=== PATIENT | male | born 1965 | race Two or more races ===

== ENCOUNTER 2024-12-21 22:44 | Inpatient (IN) | payer OTHER ==
[~2024-12-21] VITALS: Ht 167.6 cm; Wt 90.1 kg
[2024-12-21] MEDS: SODIUM CHLORIDE 0.9% 1,000 ML IV ONE (23:00)
[2024-12-21 23:04] LABS: Basophils # (auto) 0.1 10 ^3/uL (0-0.2); Eosinophils # (auto) 0.1 10 ^3/uL (0-0.8); Eosinophils % (auto) 0.5 % (0.0-7.0); Hematocrit 42.2 % (41.0-53.0); Hemoglobin 14.7 g/dL (13.5-17.5); Lymphocytes # (auto) 3.9 10 ^3/uL (0.4-5.4); Lymphocytes % (auto) 31.4 % (10.0-50.0); Mean Corpuscular Hemoglobin 30.6 pg (28.0-32.0); Mean Corpuscular Hgb Conc. 34.7 g/dL (32.0-36.0); Mean Corpuscular Volume 88.2 fL (80.0-100.0); Monocytes # (auto) 0.9 10 ^3/uL (0-1.3); Monocytes % (auto) 7.4 % (0.0-12.0); Neutrophils # (auto) 7.5 10 ^3/uL (1.6-8.6); Neutrophils % (auto) 59.7 % (37.0-80.0); Nucleated Red Blood Cells % 0.1 %; Platelet Count (auto) 279 10^3/uL (140-450); Red Blood Cells 4.79 10^6/uL (4.5-5.90); Red Cell Distribution Width 13.3 % (11.8-14.3); White Blood Cell 12.5 10^3/uL (4.4-10.8)
[2024-12-21 23:21] LABS: Alkaline Phosphatase 93 U/L (46-116); Anion Gap 13 (5-15); Aspartate Aminotransferase 37 U/L (13-40); BUN/Creatinine Ratio 21.8 (10.0-20.0); Bilirubin, Total 0.8 mg/dL (0.2-1.0); Carbon Dioxide 24 mmol/L (20-31); Chloride 103 mmol/L (98-107); Sodium 140 mmol/L (136-145); Total Protein 7.8 g/dL (5.7-8.2)
[2024-12-21 23:25] LABS: Alanine Aminotransferase 57 U/L (7-40); Albumin 5.2 g/dL (3.2-4.8); Blood Urea Nitrogen 34 mg/dL (9-23); Calcium 11.3 mg/dL (8.7-10.4); Glucose 136 mg/dL (74-106)
[2024-12-21 23:45] VITALS: PULSE 93; RESP 17; O2SAT 98
[2024-12-22] MEDS: MORPHINE SULFATE 4 MG/ML SYR/VIAL IV ONE (00:28)
[2024-12-22 00:37] LABS: Urine Bacteria FEW /hpf (None Seen); Urine Blood Negative /uL (Negative); Urine Clarity Clear (Clear); Urine Color Yellow (Yellow); Urine Mucus FEW (None Seen); Urine Protein, UAD Negative (Negative); Urine Specific Gravity 1.031 (1.001-1.035); Urine Sperm PRESENT /hpf (None Seen); Urine Squamous Epithelial Cell None Seen /hpf (<5); Urine Urobilinogen Normal (Negative); Urine WBC 1 /HPF (0-3); Urine pH 5.5 (5.0-9.0)
[2024-12-22] MEDS: ENOXAPARIN SOD 100 MG/1 ML SYRINGE SC ONE (00:39)
--- NOTE | 2024-12-22 00:40 | ED.PDOC ---
HPI Comments Patient complaining of chest pain and all over body aches which started today after work. 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 States when he got home he started having chest pains along with body aches and muscle cramping. Patient states he would have prior small heart attack one year ago. States no stents placed. Patient reports pain does feel similar to last year. Chief Complaint: Chest Pain Time Seen by MD: 22:51 Reviewed Notes: Nurses Notes Allergies: Coded Allergies: NO KNOWN ALLERGIES (Unverified , 12/21/24) Information Source: Patient Mode of Arrival: Ambulatory Severity: Moderate Past Medical History PAST MEDICAL HISTORY: IN Constitutional: denies: chills, diaphoresis, fatigue, fever, malaise, sweats, weakness, others EENTM: denies: blurred vision, double vision, ear bleeding, ear discharge, ear drainage, ear pain, ear ringing, eye pain, eye redness, hearing loss, mouth pain, mouth swelling, nasal discharge, nose bleeding, nose congestion, nose pain, photophobia, tearing, throat pain, throat swelling, voice changes, others Respiratory: denies: cough, hemoptysis, orthopnea, SOB at rest, shortness of breath, SOB with excertion, stridor, wheezing, others Cardiovascular: reports: chest pain; denies: dizzy spells, diaphoresis, Dyspnea on exertion, edema, irregular heart beat, left arm pain, lightheadedness, palpitations, PND, syncope, others Gastrointestinal: denies: abdomen distended, abdominal pain, blood streaked bowels, constipated, diarrhea, dysphagia, difficulty swallowing, hematemesis, melena, nausea, poor appetite, poor fluid intake, rectal bleeding, rectal pain, vomiting, others Genitourinary: denies: burning, dysuria, flank pain, frequency, hematuria, incontinence, penile discharge, penile sore, pain, testicle pain, testicle swelling, urgency, others Neurological: denies: dizziness, fainting, headache, left sided numbness, left sided weakness, numbness, paresthesia, pre-existing deficit, right sided numbness, right sided weakness, seizure, speech problems, tingling, tremors, weakness, others Musculoskeletal: denies: back pain, gout, joint pain, joint swelling, muscle pain, muscle stiffness, neck pain, others Integumetry: denies: bruises, change in color, change in hair/nails, dryness, laceration, lesions, lumps, rash, wounds, others Allergic/Immunocompromised: denies: Difficulty Healing, Frequent Infections, Hives, Itching, others Hematologic/Lymphatic: denies: anemia, blood clots, easy bleeding, easy bruising, swollen glands, others Physical Exam General Appearance: Moderate Distress, Normal HEENT: Normal ENT Inspection, Pharynx Normal, TMs Normal Neck: Full Range of Motion, Non-Tender, Normal, Normal Inspection Respiratory: Chest Non-Tender, Lungs Clear, No Accessory Muscle Use, No Respiratory Distress, Normal Breath Sounds Cardiovascular: No Edema, No JVD, No Murmur, No Gallop, Normal Peripheral Pulses, Regular Rate/Rhythm Breast Exam: Deferred Gastrointestinal: No Organomegaly, Non Tender, No Pulsatile Mass, Normal Bowel Sounds, Soft Genitalia: Deferred Pelvic: Deferred Rectal: Deferred Extremities: No calf tenderness, Normal capillary refill, Normal inspection, Normal range of motion, Non-tender, No pedal edema Musculoskeletal : Apperance: Normal 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 Was a procedure done?: No CP Differential Dx Differential Diagnosis: Angina, Anxiety / Panic Attack, IN X-Ray, Labs, Meds, VS Vital Signs Date Time Temp Pulse Resp B/P (MAP) Pulse Ox O2 Delivery O2 Flow Rate FiO2 12/22/24 00:28 93 17 112/72 12/21/24 23:45 93 17 98 Room Air* 3 N/A Nasal Cannula* 12/21/24 23:45 98.4 93 17 112/72 (85) 95 98.4 12/21/24 23:39 91 12/21/24 22:50 97.9 98 20 136/77 (96) 93 97.9 12/21/24 22:50 97 Lab Test 12/22/24 00:03 12/21/24 23:53 12/21/24 22:53 Range/Units Urine Color Yellow Yellow Urine Clarity Clear Clear Urine pH 5.5 5.0-9.0 Urine Specific [place] 1.031 1.001-1.035 Urine Protein Negative Negative Urine Ketones Negative Negative Urine Blood Negative Negative /uL Urine Nitrite Negative Negative Urine Bilirubin Negative Negative Urine Urobilinogen Normal Negative mg/dL Urine Leukocyte Esterase Negative Negative /uL Urine RBC 1 0 - 3 /hpf Urine Microscopic WBC 1 0-3 /HPF Urine Squamous Epithelial Cells None seen <5 /hpf Urine Bacteria Few H None Seen /hpf Urine Mucus Few None Seen Urine Sperm Present None Seen /hpf Urine Glucose Normal Normal mg/dL Troponin I High Sensitivity 760 *H 665 *H </=54 ng/L White Blood Count 12.5 H 4.4-10.8 10^3/uL Red Blood Count 4.79 4.5-5.90 10^6/uL Hemoglobin 14.7 13.5-17.5 g/dL Hematocrit 42.2 41.0-53.0 % Mean Corpuscular Volume 88.2 80.0-100.0 fL Mean Corpuscular Hemoglobin 30.6 28.0-32.0 pg Mean Corpuscular Hemoglobin Concent 34.7 32.0-36.0 g/dL Red Cell Distribution Width 13.3 11.8-14.3 % Platelet Count 279 140-450 10^3/uL Mean Platelet Volume 7.2 6.9-10.8 fL Neutrophils (%) (Auto) 59.7 37.0-80.0 % Lymphocytes (%) (Auto) 31.4 10.0-50.0 % Monocytes (%) (Auto) 7.4 0.0-12.0 % Eosinophils (%) (Auto) 0.5 0.0-7.0 % Basophils (%) (Auto) 1.0 0.0-2.0 % Neutrophils # (Auto) 7.5 1.6-8.6 10 ^3/uL Lymphocytes # (Auto) 3.9 0.4-5.4 10 ^3/uL Monocytes # (Auto) 0.9 0-1.3 10 ^3/uL Eosinophils # (Auto) 0.1 0-0.8 10 ^3/uL Basophils # (Auto) 0.1 0-0.2 10 ^3/uL Nucleated Red Blood Cells 0.1 % Sodium Level 140 136-145 mmol/L Potassium Level 4.0 3.5-5.1 mmol/L Chloride Level 103 98-107 mmol/L Carbon Dioxide Level 24 20-31 mmol/L Anion Gap 13 5-15 Blood Urea Nitrogen 34 H 9-23 mg/dL Creatinine 1.56 H 0.700-1.30 mg/dL Glomerular Filtration Rate Calc 51 >90 mL/min BUN/Creatinine Ratio 21.8 H 10.0-20.0 Serum Glucose 136 H 74-106 mg/dL Calcium Level 11.3 H 8.7-10.4 mg/dL Total Bilirubin 0.8 0.2-1.0 mg/dL Aspartate Amino Transferase (AST) 37 13-40 U/L Alanine Aminotransferase (ALT) 57 H 7-40 U/L Alkaline Phosphatase 93 46-116 U/L Total Protein 7.8 5.7-8.2 g/dL Albumin 5.2 H 3.2-4.8 g/dL Current Medications Medications (Trade) Dose Ordered Sig/Duc Route Start Time Stop Time Status Last Admin Sodium Chloride 1,000 ml @ 1,000 mls/hr Q1H ONCE IV 12/21/24 23:00 12/21/24 23:59 DC 12/21/24 23:00 Morphine Sulfate 4 mg ONCE ONCE IV 12/22/24 00:30 12/22/24 00:31 DC 12/22/24 00:28 Enoxaparin Sodium (Lovenox) 90 mg ONCE ONCE SC 12/22/24 00:30 12/22/24 00:31 DC 12/22/24 00:39 X-Ray, Labs, Meds, VS Comment Spoke with , [facility] he states patient is okay to stay here they will call in the morning for follow up. [id number] Patient will be admitted for elevated troponins, NSTEMI , acute kidney injury, dehydration Patient given Lovenox, morphine , saline bolus 1 L Time of 1ST Reevaluation: 00:40 Reevaluation 1ST: Unchanged Patient Education/Counseling: Diagnosis, Treatment Family Education/Counseling: Diagnosis, Treatment Departure 1 Departure Time of Disposition: 00:39 Impression: Primary Impression: Elevated troponin Additional Impressions: FANTA (acute kidney injury) Dehydration NSTEMI, initial episode of care Disposition: ADMITTED INPATIENT Condition: Stable Critical Care Note Critical Care Time?: No Stability Stability form required: No Heart Score Heart Score: Heart Score Response (Comments) Value History Highly Suspicious 2 EKG Normal 0 Age 45-64 1 Risk Factors 1 or 2 risk factors 1 Troponin >3 x's Normal limit 2 Total 6 RAÚL POPE Dec 22, 2024 00:40
--- NOTE | 2024-12-22 00:59 | DVH ---
EXAM: XY CHEST XRAY 1 VIEW CLINICAL HISTORY: cp TECHNIQUE: Single AP view of the chest WID: COMPARISON: None FINDINGS: Lines and tubes: None Chest: The heart size and pulmonary vasculature is within normal limits. No pleural effusion, pneumothorax, or consolidation. The osseous structures are grossly intact. IMPRESSION: No acute cardiopulmonary abnormality.
[2024-12-22] MEDS: ATORVASTATIN 20 MG TAB PO ONE (01:45)
[2024-12-22] MEDS ORDERED: NITROGLYCERIN 0.4 MG SL TAB SL PRN (01:45)
[2024-12-22] MEDS ORDERED: DOCUSATE SOD 100 MG CAP PO PRN (02:00)
[2024-12-22] MEDS ORDERED: MORPHINE SULFATE 4 MG/ML SYR/VIAL IV PRN (02:00)
[2024-12-22] MEDS ORDERED: MORPHINE SULFATE INJ 2 MG/ml SYRG IV PRN (02:00)
[2024-12-22] MEDS ORDERED: ACETAMINOPHEN 325 MG TAB PO PRN (02:00)
[2024-12-22] MEDS: PANTOPRAZOLE 40 MG/10 ML VIAL INJ IV ONE (02:13)
[2024-12-22] MEDS: ASPirin 325 MG TAB PO ONE (02:15)
[2024-12-22 02:17] LABS: CRP High Sensitivity 0.58 mg/dL (<1.0)
[2024-12-22 02:22] LABS: INR 1.03 (0.9-1.15); Prothrombin Time 10.9 sec (9.3-11.8)
[2024-12-22 02:24] LABS: Amphetamine Screen, Urine Neg (NEGATIVE); Barbiturate Scree,Urine Neg (NEGATIVE); Benzodiazephine Screen, Urine Neg (NEGATIVE); Cannabinoid Screen, Urine Neg (NEGATIVE); Cocaine Screen, Urine Neg (NEGATIVE); Opiate Scree,Urine Neg (NEGATIVE); Phencyclidine Screen, Urine Neg (NEGATIVE)
[2024-12-22 02:30] LABS: Creatinine, Urine 288.32 mg/dL (30.0-125.0)
[2024-12-22 02:30] LABS: Alkaline Phosphatase 86 U/L (46-116); Blood Alcohol 4.2 mg/dL (<10); Carbon Dioxide 25 mmol/L (20-31); Chloride 103 mmol/L (98-107); Potassium 3.9 mmol/L (3.5-5.1); Sodium 140 mmol/L (136-145)
[2024-12-22 02:31] LABS: Anion Gap 12 (5-15); Aspartate Aminotransferase 40 U/L (13-40); BUN/Creatinine Ratio 27.7 (10.0-20.0); Bilirubin, Total 0.7 mg/dL (0.2-1.0); HDL Cholesterol 43 mg/dL (40-59); Total Protein 7.2 g/dL (5.7-8.2)
[2024-12-22 02:32] LABS: Alanine Aminotransferase 52 U/L (7-40); Albumin 4.8 g/dL (3.2-4.8); Blood Urea Nitrogen 36 mg/dL (9-23); Calcium 10.5 mg/dL (8.7-10.4); Cholesterol 228 mg/dL (< 200); Glucose 121 mg/dL (74-106); LDL Cholesterol 134 mg/dL (< 100); Triglycerides 248 mg/dL (< 150)
[2024-12-22 02:46] LABS: Erythrocyte Sedimentation Rate 10 mm/hr (0-20)
--- NOTE | 2024-12-22 02:59 | DVH ---
INDICATION: FANTA TECHNIQUE: Multiple real-time sonographic images of the kidneys and bladder were obtained. COMPARISON: None FINDINGS: RIGHT kidney measures 9.5 cm in length. Normal renal parenchymal echotexture and cortical thickness. No hydronephrosis. LEFT kidney measures 9.5 cm in length. Normal renal parenchymal echotexture and cortical thickness. No hydronephrosis. No large intraluminal masses are seen in the bladder. The urinary bladder contracted. Post void residual not evaluated. IMPRESSION: 1. Unremarkable examination.
[2024-12-22] MEDS: SODIUM CHLORIDE 0.9% 1,000 ML IV ONE (03:36)
--- NOTE | 2024-12-22 03:37 | DVHHPRES ---
History of Present Illness Resident Creating Document: JAYLEN DE DIOS RESIDENT History of Present Illness Mr. 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 Patient complained of left-sided, vague, dull, chest pains for few hours after coming home with associated body aches and widespread muscle cramping with generalized malaise. Patient denies chest pain on exertion, shortness of breath, PND, orthopnea, history of any surgery or any other significant symptoms. 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 Patient is not medically stable for transfer, admitted to [facility] for further workup and management for possible underlying CAD, chest pain needing to rule out ACS. The patient was accompanied by his . He is living in [place] for work at [employer] but actually is from [facility]. [place] Pre authorization . 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 ALCOHOL: heavy (History of heavy alcohol consumption for about 30 years, sober for past 10 years.) Drugs: Other (Previous history of heavy methamphetamine abuse for over 20 years, sober for past 10 years.) Lives: with Family (Lives in family at [place] with .) Domestic Violence: Neg Review of Systems Constitutional: Yes: Sweats, Weakness, Malaise; No: Fever, Chills, Other Eyes: No: Pain, Vision change, Conjunctivae inflammation, Eyelid inflammation, Other, Redness ENT: No: Ear pain, Ear discharge, Nose pain, Nose discharge, Nose congestion, Mouth pain, Mouth swelling, Throat pain, Throat swelling, Other Respiratory: No: Cough, Dry, Shortness of breath, SOB with excertion, Wheezing, Hemoptysis, Pleuritic Pain, Sputum, Wheezing, Other Cardiovascular: Chest Pain; No: Palpitations, Orthopnea, Paroxysmal Noc. Dyspnea, Edema, Lt Headedness, Other Gastrointestinal: Constipation; No: Nausea, Vomiting, Abdominal Pain, Diarrhea, Melena, Hematochezia, Other Genitourinary: No Dysuria, No Frequency, No Incontinence, No Hematuria, No Retention, No Other Musculoskeletal: other (Cramps), arm pain Skin: No: Rash, Lesions, Jaundice, Bruising, Other Neurological: No: Weakness, Numbness, Incoordination, Change in speech, Confusion, Seizures, Other Allergies: Coded Allergies: NO KNOWN ALLERGIES (Unverified , 12/21/24) Medications Current Medications Medications Dose Ordered Sig/Duc Route Start Time Stop Time Status Last Admin Dose Admin Nitroglycerin 0.4 mg Q5MINP PRN SL 12/22/24 01:45 Morphine Sulfate 2 mg Q30M PRN IV 12/22/24 02:00 Aspirin 81 mg DAILY PO 12/22/24 10:00 01/01/25 23:55 Pantoprazole Sodium 40 mg DAILY IV 12/22/24 10:00 Docusate Sodium 100 mg BIDPRN PRN PO 12/22/24 02:00 Acetaminophen 650 mg Q6HP PRN PO 12/22/24 02:00 Morphine Sulfate 2 mg Q4HPRN PRN IV 12/22/24 02:00 Sodium Chloride 1,000 ml @ 125 mls/hr Q8H IV 12/22/24 04:30 Heparin Sodium/ Dextrose 250 ml @ 8.5 mls/hr Q24H IV 12/22/24 12:30 UNV Exam Vital Signs Vital Signs Date Time Temp Pulse Resp B/P (MAP) Pulse Ox O2 Delivery O2 Flow Rate FiO2 12/22/24 01:39 78 12/22/24 01:03 15 110/68 12/22/24 01:00 96 12/21/24 23:45 Room Air* 3 N/A Nasal Cannula* 12/21/24 23:45 98.4 98.4 General Appearance: Alert, Oriented X3, Cooperative, mild distress HEENT: Atraumatic, PERRLA, EOMI, Other (Extremely dry mucous membrane low skin turgor) Respiratory: Clear to auscultation, Normal air movement, Other (Left chest 1x 2 semi fluctuant abscess redness no discharge) Cardiovascular: Regular rate, Normal S1, Normal S2, No murmurs Abdominal: Normal bowel sounds, Soft, No tenderness, No hepatospenomegaly, No masses Extremities: No clubbing, No cyanosis, No edema, Normal pulses, No tenderness/swelling, Other (Patient has bilateral lower leg hypertrophied cuff muscles.) Skin: No rashes, No breakdown, No significant lesion Neuro: Normal gait, Normal speech, Strength at 5/5 X4 ext, Normal tone, Sensation intact, Cranial nerves 3-12 NL, Reflexes 2+ Psych/Mental Status: Mental status NL, Mood NL Labs/Xrays Labs Test 12/22/24 01:52 12/22/24 01:50 12/22/24 00:03 12/21/24 23:53 Range/Units Prothrombin Time 10.9 9.3-11.8 sec Prothrombin Time INR 1.03 0.9-1.15 Activated Partial Thromboplast Time 31.1 24.5-34.5 SEC D-Dimer, Quantitative 0.38 0.0-0.49 mg/L FEU Sodium Level 140 136-145 mmol/L Potassium Level 3.9 3.5-5.1 mmol/L Chloride Level 103 98-107 mmol/L Carbon Dioxide Level 25 20-31 mmol/L Anion Gap 12 5-15 Blood Urea Nitrogen 36 H 9-23 mg/dL Creatinine 1.30 0.700-1.30 mg/dL Glomerular Filtration Rate Calc 64 >90 mL/min BUN/Creatinine Ratio 27.7 H 10.0-20.0 Serum Glucose 121 H 74-106 mg/dL Hemoglobin A1c 5.9 H <5.7 % A1C Lactic Acid Level 1.1 0.4-2.0 mmol/L Calcium Level 10.5 H 8.7-10.4 mg/dL Total Bilirubin 0.7 0.2-1.0 mg/dL Aspartate Amino Transferase (AST) 40 13-40 U/L Alanine Aminotransferase (ALT) 52 H 7-40 U/L Alkaline Phosphatase 86 46-116 U/L Troponin I High Sensitivity 732 *H </=54 ng/L Total Protein 7.2 5.7-8.2 g/dL Albumin 4.8 3.2-4.8 g/dL Triglycerides Level 248 H < 150 mg/dL Cholesterol Level 228 H < 200 mg/dL LDL Cholesterol 134 H < 100 mg/dL HDL Cholesterol 43 40-59 mg/dL Thyroid Stimulating Hormone (TSH) 1.54 0.55-4.78 uIU/mL Plasma/Serum Blood Alcohol 4.2 <10 mg/dL Urine Color Yellow Yellow Urine Clarity Clear Clear Urine pH 5.5 5.0-9.0 Urine Specific [place] 1.031 1.001-1.035 Urine Protein Negative Negative Urine Ketones Negative Negative Urine Blood Negative Negative /uL Urine Nitrite Negative Negative Urine Bilirubin Negative Negative Urine Urobilinogen Normal Negative mg/dL Urine Leukocyte Esterase Negative Negative /uL Urine RBC 1 0 - 3 /hpf Urine Microscopic WBC 1 0-3 /HPF Urine Squamous Epithelial Cells None seen <5 /hpf Urine Bacteria Few H None Seen /hpf Urine Mucus Few None Seen Urine Sperm Present None Seen /hpf Urine Creatinine 288.32 H 30.0-125.0 mg/dL Urine Sodium 45 40-220 mmol/L Urine Potassium 56 12-62 mmol/L Urine Glucose Normal Normal mg/dL Urine Opiates Screen Neg NEGATIVE Urine Fentanyl Screen Neg NEGATIVE Urine Barbiturates Screen Neg NEGATIVE Urine Phencyclidine Screen Neg NEGATIVE Urine Amphetamines Screen Neg NEGATIVE Urine Benzodiazepines Screen Neg NEGATIVE Urine Cocaine Screen Neg NEGATIVE Urine Cannabinoids Screen Neg NEGATIVE Creatine Kinase 993 H 46-171 U/L C-Reactive Protein High Sensitivity 0.58 <1.0 mg/dL Test 12/21/24 22:53 Range/Units White Blood Count 12.5 H 4.4-10.8 10^3/uL Red Blood Count 4.79 4.5-5.90 10^6/uL Hemoglobin 14.7 13.5-17.5 g/dL Hematocrit 42.2 41.0-53.0 % Mean Corpuscular Volume 88.2 80.0-100.0 fL Mean Corpuscular Hemoglobin 30.6 28.0-32.0 pg Mean Corpuscular Hemoglobin Concent 34.7 32.0-36.0 g/dL Red Cell Distribution Width 13.3 11.8-14.3 % Platelet Count 279 140-450 10^3/uL Mean Platelet Volume 7.2 6.9-10.8 fL Neutrophils (%) (Auto) 59.7 37.0-80.0 % Lymphocytes (%) (Auto) 31.4 10.0-50.0 % Monocytes (%) (Auto) 7.4 0.0-12.0 % Eosinophils (%) (Auto) 0.5 0.0-7.0 % Basophils (%) (Auto) 1.0 0.0-2.0 % Neutrophils # (Auto) 7.5 1.6-8.6 10 ^3/uL Lymphocytes # (Auto) 3.9 0.4-5.4 10 ^3/uL Monocytes # (Auto) 0.9 0-1.3 10 ^3/uL Eosinophils # (Auto) 0.1 0-0.8 10 ^3/uL Basophils # (Auto) 0.1 0-0.2 10 ^3/uL Nucleated Red Blood Cells 0.1 % Erythrocyte Sedimentation Rate 10 0-20 mm/hr B-Type Natriuretic Peptide 3.02 0-100 pg/mL Assessment/Plan Assessment/Plan Assessment: # type 2 NSTEMI, heart score of 6, high-risk, AILYN score of 3. # Likely heat exhaustion/ heat stroke. # Acute Hypoxic respiratory failure. # chest pain to rule out ACS. CXR unremarkable # FANTA due to VMN # Moderate to severe dehydration # leukocytosis could be secondary due to stress response # SIRS response /underlying possible infection under investigation. # left chest subcutaneous abscess # Obesity grade 1 # family history of premature coronary artery disease with siblings having ACS in 50s. # Prior history of heavy alcohol abuse, sober for last 10 years. # Prior history of 20 + years of Methamphetamine abuse, completely sober for past 10 years. # Twenty-five pack-year of smoking history, quit about a year back. # patient was on dual antiplatelet therapy with the Brilinta and aspirin. Patient denies having any history of stent / bleeding history. Brilinta was discontinued last Saturday # Prediabetic with HbA1C 5.9 # strenuous workout elevated CK in 900s Plan: #Sublingual nitrogen, s/p enoxaparin and aspirin loading with atorvastatin to continue. Echo pending. cardiology consulted. #telemetry monitoring, close hemodynamic check, pain control and IV heparin drip without loading bolus, titrate based on APTT. #Trend CBC, check CMP and trend, check urinalysis. #Repeat cxr after rehydration , workup with rapid influenza, COVID, troponin trend, EKG repeat, BNP , ESR, CRP , UDS all pending. And CK Given generalized muscle cramps. #Workup for FANTA with urine sodium /urine electrolytes, U/S bilateral renal , unremarkable UA. #Continue oxygen titrate as tolerated down to keep the SpO2 above 94. #Outpatient abscess drainage. #IV fluid with 1 L bolus Ringer lactate, 125 cc/hour continuous gentle rehydration. #NPO for now in anticipation of possible cardiac intervention. #High-risk individual with type 2 NSTEMI and recurrent chest pain with several risk factors including obesity, dyslipidemia, premature coronary artery disease history in the family, [place] #Continue passive cooling measures. Bedrest and overall avoidance of heat. #continue bedrest, trend CK and continue hydration. Code status: Full code, goals of care discussion needed 39 minutes, care plan discussed with the patient and the agreeable to the hospitalist stay and further treatment. Patient is admitted in hospital for further workup and management, eventually he will need like close follow up with the PCP, cardiology follow up and inpatient versus outpatient of stress test versus cardiac catheterization. High-risk, Patient is not medically stable to be transferred to [facility] at this point. Discussed with Dr. Hawthorne. Plan discussed with: Patient, Spouse My Orders Orders - JAYLEN DE DIOS RESIDENT Procedure Category Date Status Time Blood Culture GINNY 12/22/24 In Process 01:22 Covid19 Antigen Cecily LAB 12/22/24 In Process Rapid Influenza A&B LAB 12/22/24 In Process 01:22 * Cardiology Consult CONS 12/22/24 Transmitted 01:22 Admit ADMIT 12/22/24 Transmitted 01:37 Nitroglycerin PHA 12/22/24 In Process Sublingual (Ntrostat 01:45 Oxygen By Nasal RT 12/22/24 Transmitted Cannula 01:37 Stat Ekg For Chest PATRICE 12/22/24 In Process Pain 01:37 Notify Of Changes PATRICE 12/22/24 In Process From Base 01:37 Exchange Consultant For PATRICE 12/22/24 In Process 24 Hours 01:37 Emergency Dysrhythmia PATRICE 12/22/24 In Process Protocol 01:37 Rhythm Strips Once PATRICE 12/22/24 In Process Every Shift 01:37 Osmolality Urine LAB 12/22/24 In Process 01:38 Echo 2d Mode Cardiac US 12/22/24 Logged DOP 01:38 Kidney US 12/22/24 Resulted 01:38 Morphine Sulfate PHA 12/22/24 In Process Injection 02:00 Aspirin Tablet PHA 12/22/24 In Process 10:00 Pantoprazole PHA 12/22/24 In Process (Protonix) 10:00 Allergies PATRICE 12/22/24 In Process 01:58 Code Status CODE 12/22/24 Transmitted 01:58 Oxygen Per Hour RT 12/22/24 Transmitted 01:58 Docusate Sodium PHA 12/22/24 In Process Capsule (Colace 02:00 Complete Blood Count LAB 12/23/24 Verified 04:00 Comprehensive LAB 12/23/24 Verified Metabolic Panel 04:00 Npo (Nothing By DIET 12/22/24 Transmitted Mouth) Diet Breakfast Pt Request For Service PT 12/22/24 Logged 01:58 Condition: Serious PATRICE 12/22/24 In Process 01:58 Acetaminophen Tablet PHA 12/22/24 In Process (Tylenol Tablet) 02:00 Bedrest With Bathroom PATRICE 12/22/24 In Process Privileg 01:58 Bedside Commode PATRICE 12/22/24 In Process 01:58 Maintain Bed Rest PATRICE 12/22/24 In Process 01:58 Morphine Sulfate PHA 12/22/24 In Process Injection 02:00 Sodium Chloride 0.9% PHA 12/22/24 In Process 03:30 Sodium Chloride 0.9% PHA 12/22/24 In Process 04:30 Platelet Monitoring PATRICE 12/22/24 In Process 02:49 Heparin Per PATRICE 12/22/24 In Process Standardized Proce 02:49 Discontinue All Im PATRICE 12/22/24 In Process Injections 02:49 Heparin Drip/D5w PHA 12/22/24 Pending 100units/Ml 12:30 Communication Order ORDERS 12/22/24 Transmitted 02:49 * News Intern CONS 12/22/24 Transmitted Consult Date of Service: Dec 22, 2024 Billing Provider: ELISA HAWTHORNE MD Common Visit Codes: 35583-QXDTMBL INP/OBS CARE (HIGH) Secondary Visit Codes: 42094-OEMAXONR CARE PLAN 30 MINUTES JAYLEN DE DIOS RESIDENT Dec 22, 2024 03:37
[2024-12-22 03:54] LABS: Rapid Influenza A Negative (Negative); Rapid Influenza B Negative (Negative)
[2024-12-22 03:55] LABS: COVID19 ANTIGEN SOFIA FIA NEGATIVE (NEGATIVE)
[2024-12-22] MEDS: SODIUM CHLORIDE 0.9% 1,000 ML IV SCH (04:32)
--- NOTE | 2024-12-22 05:28 | ECG ---
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
--- NOTE | 2024-12-22 05:29 | ECG ---
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
[2024-12-22 07:30] VITALS: PULSE 76; RESP 9; O2SAT 97
--- NOTE | 2024-12-22 08:17 | DVHCONRES ---
JOSE WRIGHT RESIDENT 12/22/24 0817: Date Seen: Dec 22, 2024 Resident Creating Document: JOSE WRIGHT RESIDENT Referring Physician Dr. Wright Reason for Consultation NSTEMI History of Present Illness Patient is a 51-year-old male with past medical history of CAD s/p PCI x2 in December 2023 at [place], who comes in due to left-sided chest discomfort. 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 Patient notes he had similar symptoms 1 year ago when he was diagnosed with NSTEMI and underwent PCI x2 [facility] in [place]. Per patient he was started on aspirin and Brilinta after his previous stents, Brilinta was stopped on Saturday12/18/2024. Patient reports good compliance to medication. On review of system patient is denying any active ongoing chest pain, shortness of breath, dyspnea, palpitations or diaphoresis. Initial EKG showed ST depressions in the inferior leads, which was resolved on later EKGs and serial troponins were 665, 760, 732. Past Medical History CAD s/p PCI x2 in December 2023 at [place] Past Surgical History PCI x2 in December 2023 at [facility], right foot surgery Family History Family history of accelerated CAD in brother Social History Smoking: Quit December 2023, prior to that was smoking 1 pack per day for 20 years Alcohol: Quit 10 years ago, prior to that remote history of heavy use Drugs: Quit methamphetamine 10 years ago, prior to that history of heavy methamphetamine abuse for 20 years Allergies: Coded Allergies: NO KNOWN ALLERGIES (Unverified , 12/21/24) Home Meds Reported Medications Nitroglycerin (NTROSTAT SUBLINGUAL) 0.4 Mg Sl, 0.4 MG SL PRN, TAB *MAY REPEAT EVERY 5 MINUTES X 3 TOTAL IF NO RELIEF, INITIATE ANALGESIC THERAPY. NOTIFY PHYSICIAN *Do not crush. 12/23/24 Atorvastatin Calcium (Lipitor) 40 Mg Tab, 1 TAB PO QPM, #90 TAB 1 Refill 12/23/24 Aspirin (ASPIRIN 81) 81 Mg Tab, 81 MG PO DAILY, TAB 12/23/24 Current Medications Current Medications Medications (Trade) Dose Ordered Sig/Duc Route PRN Reason Start Time Stop Time Status Last Admin Nitroglycerin (Ntrostat Sublingual) 0.4 mg Q5MINP PRN SL FOR CHEST PAIN 12/22/24 01:45 Morphine Sulfate 2 mg Q30M PRN IV FOR CHEST PAIN 12/22/24 02:00 Aspirin 81 mg DAILY PO 12/22/24 10:00 01/01/25 23:55 Pantoprazole Sodium (Protonix) 40 mg DAILY IV 12/22/24 10:00 Docusate Sodium (Colace Capsule) 100 mg BIDPRN PRN PO FOR CONSTIPATION 12/22/24 02:00 Acetaminophen (Tylenol Tablet) 650 mg Q6HP PRN PO PAIN SCALE 1-3 OR TEMP>100.4 12/22/24 02:00 Morphine Sulfate 2 mg Q4HPRN PRN IV SEVERE PAIN (7-10 PAIN SCALE) 12/22/24 02:00 Sodium Chloride 1,000 ml @ 125 mls/hr Q8H IV 12/22/24 04:30 12/22/24 04:32 Heparin Sodium/ Dextrose 250 ml @ 8.5 mls/hr Q24H IV 12/22/24 12:30 Review of Systems Patient seen and examined at bedside. Patient is alert and oriented to time, place person and responding to all questions. Eyes: No Pain, No Vision change, No Conjunctivae inflammation, No Eyelid inflammation, No Other, No Redness ENT: No Ear pain, No Ear discharge, No Nose pain, No Nose discharge, No Nose congestion, No Mouth pain, No Mouth swelling, No Throat pain, No Throat swelling, No Other Cardiovascular: No Chest Pain, No Palpitations, No Orthopnea, No Paroxysmal No Dyspnea, No Edema, No Lt Headedness, No Other Respiratory: No Cough, No Dry, No Shortness of breath, No SOB with exertion, No Wheezing, No Hemoptysis, No Pleuritic Pain, No Sputum, No Other Gastrointestinal: No Nausea, No Vomiting, No Abdominal Pain, No Diarrhea, No Constipation, No Melena, No Hematochezia, No Other Genitourinary: No Dysuria, No Frequency, No Incontinence, No Hematuria, No R etention, No Other Musculoskeletal: No other, No neck pain, No shoulder pain, No arm pain, No back pain, No hand pain, No leg pain, No foot pain Skin: No Rash, No Lesions, No Jaundice, No Bruising, No Other Vital Signs Vital Signs Date Time Temp Pulse Resp B/P (MAP) Pulse Ox O2 Delivery O2 Flow Rate FiO2 12/22/24 06:26 96 127/62 70 129/61 85 131/79 12/22/24 06:00 17 97 12/21/24 23:45 Room Air* 3 N/A Nasal Cannula* 12/21/24 23:45 98.4 98.4 Physical Exam General Appearance: Cooperative. Well developed. Well nourished. NAD. Dry mucous membrane Head Exam: Normal inspection Neck Exam: Normal inspection. Non-tender. Normal alignment Pulmonary/Respiratory: Chest non-tender. Clear bilateral breath sounds, no crackles, no wheezing. Cardiovascular/Chest: Regular rate and rhythm. No murmurs. No JVD. Peripheral Pulses: 2+ Radial (R). 2+ Radial (L). 2+ Pedal (R). 2+ Pedal (L) Abdominal Exam: Normal bowel sounds. Soft. normal abdomen, no visible veins, Nontender. No hepatospenomegaly. No masses Ankle Exam: Negative ankle edema Lower extremities: Negative lower extremity edema Neuro/Mental Status: A&O x4. Coherent. Thoughts/Psych: Normal thought pattern. Appropriate mood and affect. Good judgement and insight Skin Exam: Normal inspection. Normal color. Warm. Dry Labs/Diagnostic Data Labs Test 12/22/24 01:52 12/22/24 01:50 12/22/24 00:03 12/21/24 23:53 Range/Units Prothrombin Time 10.9 9.3-11.8 sec Prothrombin Time INR 1.03 0.9-1.15 Activated Partial Thromboplast Time 31.1 24.5-34.5 SEC D-Dimer, Quantitative 0.38 0.0-0.49 mg/L FEU Sodium Level 140 136-145 mmol/L Potassium Level 3.9 3.5-5.1 mmol/L Chloride Level 103 98-107 mmol/L Carbon Dioxide Level 25 20-31 mmol/L Anion Gap 12 5-15 Blood Urea Nitrogen 36 H 9-23 mg/dL Creatinine 1.30 0.700-1.30 mg/dL Glomerular Filtration Rate Calc 64 >90 mL/min BUN/Creatinine Ratio 27.7 H 10.0-20.0 Serum Glucose 121 H 74-106 mg/dL Hemoglobin A1c 5.9 H <5.7 % A1C Lactic Acid Level 1.1 0.4-2.0 mmol/L Calcium Level 10.5 H 8.7-10.4 mg/dL Total Bilirubin 0.7 0.2-1.0 mg/dL Aspartate Amino Transferase (AST) 40 13-40 U/L Alanine Aminotransferase (ALT) 52 H 7-40 U/L Alkaline Phosphatase 86 46-116 U/L Troponin I High Sensitivity 732 *H </=54 ng/L Total Protein 7.2 5.7-8.2 g/dL Albumin 4.8 3.2-4.8 g/dL Triglycerides Level 248 H < 150 mg/dL Cholesterol Level 228 H < 200 mg/dL LDL Cholesterol 134 H < 100 mg/dL HDL Cholesterol 43 40-59 mg/dL Thyroid Stimulating Hormone (TSH) 1.54 0.55-4.78 uIU/mL Plasma/Serum Blood Alcohol 4.2 <10 mg/dL Influenza Type A Antigen Negative Negative Influenza Type B Antigen Negative Negative SARS-CoV-2 Antigen (Rapid) Negative NEGATIVE Urine Color Yellow Yellow Urine Clarity Clear Clear Urine pH 5.5 5.0-9.0 Urine Specific [place] 1.031 1.001-1.035 Urine Protein Negative Negative Urine Ketones Negative Negative Urine Blood Negative Negative /uL Urine Nitrite Negative Negative Urine Bilirubin Negative Negative Urine Urobilinogen Normal Negative mg/dL Urine Leukocyte Esterase Negative Negative /uL Urine RBC 1 0 - 3 /hpf Urine Microscopic WBC 1 0-3 /HPF Urine Squamous Epithelial Cells None seen <5 /hpf Urine Bacteria Few H None Seen /hpf Urine Mucus Few None Seen Urine Sperm Present None Seen /hpf Urine Osmolality 980 mOsm/kg Urine Creatinine 288.32 H 30.0-125.0 mg/dL Urine Sodium 45 40-220 mmol/L Urine Potassium 56 12-62 mmol/L Urine Glucose Normal Normal mg/dL Urine Opiates Screen Neg NEGATIVE Urine Fentanyl Screen Neg NEGATIVE Urine Barbiturates Screen Neg NEGATIVE Urine Phencyclidine Screen Neg NEGATIVE Urine Amphetamines Screen Neg NEGATIVE Urine Benzodiazepines Screen Neg NEGATIVE Urine Cocaine Screen Neg NEGATIVE Urine Cannabinoids Screen Neg NEGATIVE Creatine Kinase 993 H 46-171 U/L C-Reactive Protein High Sensitivity 0.58 <1.0 mg/dL Test 12/21/24 22:53 Range/Units White Blood Count 12.5 H 4.4-10.8 10^3/uL Red Blood Count 4.79 4.5-5.90 10^6/uL Hemoglobin 14.7 13.5-17.5 g/dL Hematocrit 42.2 41.0-53.0 % Mean Corpuscular Volume 88.2 80.0-100.0 fL Mean Corpuscular Hemoglobin 30.6 28.0-32.0 pg Mean Corpuscular Hemoglobin Concent 34.7 32.0-36.0 g/dL Red Cell Distribution Width 13.3 11.8-14.3 % Platelet Count 279 140-450 10^3/uL Mean Platelet Volume 7.2 6.9-10.8 fL Neutrophils (%) (Auto) 59.7 37.0-80.0 % Lymphocytes (%) (Auto) 31.4 10.0-50.0 % Monocytes (%) (Auto) 7.4 0.0-12.0 % Eosinophils (%) (Auto) 0.5 0.0-7.0 % Basophils (%) (Auto) 1.0 0.0-2.0 % Neutrophils # (Auto) 7.5 1.6-8.6 10 ^3/uL Lymphocytes # (Auto) 3.9 0.4-5.4 10 ^3/uL Monocytes # (Auto) 0.9 0-1.3 10 ^3/uL Eosinophils # (Auto) 0.1 0-0.8 10 ^3/uL Basophils # (Auto) 0.1 0-0.2 10 ^3/uL Nucleated Red Blood Cells 0.1 % Erythrocyte Sedimentation Rate 10 0-20 mm/hr B-Type Natriuretic Peptide 3.02 0-100 pg/mL Assessment NSTEMI type 1 versus type 2 CAD, AILYN 3 S/p PCI x2 in December 2023 Prediabetes with A1c 5.9 Mixed dyslipidemia Heat exhaustion FANTA likely hemodynamically mediated, now improving Dehydration Plan: Continue aspirin, continue heparin drip Atorvastatin 80 mg daily Started ezetimibe Monitor blood pressure Continue hydration Considering EKG changes on the initial EKG together with patient's risk factor, patient will be scheduled for left heart catheterization tomorrow on 12/23/2024 NPO after midnight Thank you so much for the opportunity to consult on your patient. Cardiology team will follow the patient. In case of any questions or concerns please feel free to reach out. Plan discussed with Dr. Godinez Plan discussed with: Patient, Spouse, Other (RN) Visit Coding Cardiology RES Date of Service: Dec 22, 2024 Billing Provider: EULALIO GODINEZ MD Cardiology Common Codes: [id number] INP/OBS CARE (High) EULALIO GODINEZ MD 12/24/24 0921: Date Seen: Dec 22, 2024 Allergies: Coded Allergies: NO KNOWN ALLERGIES (Unverified , 12/21/24) Home Meds Reported Medications Nitroglycerin (NTROSTAT SUBLINGUAL) 0.4 Mg Sl, 0.4 MG SL PRN, TAB *MAY REPEAT EVERY 5 MINUTES X 3 TOTAL IF NO RELIEF, INITIATE ANALGESIC THERAPY. NOTIFY PHYSICIAN *Do not crush. 12/23/24 Atorvastatin Calcium (Lipitor) 40 Mg Tab, 1 TAB PO QPM, #90 TAB 1 Refill 12/23/24 Aspirin (ASPIRIN 81) 81 Mg Tab, 81 MG PO DAILY, TAB 12/23/24 Plan/Recommendation 59yo male with hx of ptca 1 yo, no records available, unaware of vessel or details. similiar symptoms as prior cardiac event. some nonspecific ekg changes in lateral leads. concomitant dehydration from physical exertion s/p fluid resuscitation. after discussing with the patient, we will evaluate further with angiogram. continue acs tx. Visit Coding Cardiology RES Cardiology Common Codes: [id number] INP/OBS CARE (Mod), [id number] INP/OBS CARE (High) JOSE WRIGHT Dec 22, 2024 08:17 EULALIO GODINEZ MD Dec 24, 2024 09:21
[2024-12-22 09:17] LABS: Basophils # (auto) 0 10 ^3/uL (0-0.2); Basophils % (auto) 0.4 % (0.0-2.0); Eosinophils # (auto) 0.1 10 ^3/uL (0-0.8); Hematocrit 37.2 % (41.0-53.0); Hemoglobin 12.7 g/dL (13.5-17.5); Lymphocytes # (auto) 2.8 10 ^3/uL (0.4-5.4); Mean Corpuscular Hemoglobin 30.3 pg (28.0-32.0); Mean Corpuscular Hgb Conc. 34.2 g/dL (32.0-36.0); Mean Corpuscular Volume 88.6 fL (80.0-100.0); Monocytes # (auto) 0.5 10 ^3/uL (0-1.3); Monocytes % (auto) 8.1 % (0.0-12.0); Neutrophils # (auto) 3.1 10 ^3/uL (1.6-8.6); Neutrophils % (auto) 47.5 % (37.0-80.0); Nucleated Red Blood Cells % 0.1 %; Platelet Count (auto) 218 10^3/uL (140-450); Red Blood Cells 4.19 10^6/uL (4.5-5.90); Red Cell Distribution Width 13.2 % (11.8-14.3); White Blood Cell 6.6 10^3/uL (4.4-10.8)
[2024-12-22 09:34] LABS: Albumin 4.3 g/dL (3.2-4.8); Alkaline Phosphatase 70 U/L (46-116); Anion Gap 9 (5-15); Aspartate Aminotransferase 33 U/L (13-40); BUN/Creatinine Ratio 30.1 (10.0-20.0); Bilirubin, Total 0.8 mg/dL (0.2-1.0); Calcium 9.4 mg/dL (8.7-10.4); Carbon Dioxide 25 mmol/L (20-31); Chloride 107 mmol/L (98-107); Magnesium 2.3 mg/dL (1.6-2.6); Sodium 141 mmol/L (136-145); Total Protein 6.6 g/dL (5.7-8.2)
[2024-12-22 09:37] LABS: Alanine Aminotransferase 43 U/L (7-40); Blood Urea Nitrogen 31 mg/dL (9-23); Glucose 106 mg/dL (74-106)
[2024-12-22] MEDS: PANTOPRAZOLE 40 MG/10 ML VIAL INJ IV SCH (09:46)
[2024-12-22] MEDS: ASPirin 81 mg TAB PO SCH (09:46)
--- NOTE | 2024-12-22 11:00 | ECG ---
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
[2024-12-22] MEDS: OPTISON 3ml Vial for INJ IV ONE (11:11)
[2024-12-22] MEDS: EZETIMIBE 10 MG TAB PO SCH (11:27)
[2024-12-22] MEDS: HEPARIN DRIP/D5W 100UNITS/ML 250 ML IV SCH ×2 (12:34→20:52)
--- NOTE | 2024-12-22 14:06 | DVHPN2 ---
Progress Note Date Seen: Dec 22, 2024 Medical Necessity Reason Pt with a Central, PICC or Fol: No Subjective Patient reports: No new complaints Review of Systems: HEENT:Normal, CVS:Normal, RESPIRATORY:Normal, GI:Normal, :Normal, MSK:Normal, NEURO:Normal Objective vital signs Vital Sign Date Time Temp Pulse Resp B/P (MAP) Pulse Ox O2 Delivery O2 Flow Rate FiO2 12/22/24 12:00 76 13 103/64 (77) 96 12/22/24 09:30 98.2 98.2 12/22/24 07:30 Nasal Cannula* 3 32 Total Intake and Output 12/21/24 12/21/24 12/22/24 15:00 23:00 07:00 Intake Total 2250 ml Balance 2250 ml medications Current Medications Medications Dose Ordered Sig/Duc Route Start Time Stop Time Status Last Admin Dose Admin Nitroglycerin 0.4 mg Q5MINP PRN SL 12/22/24 01:45 Morphine Sulfate 2 mg Q30M PRN IV 12/22/24 02:00 Aspirin 81 mg DAILY PO 12/22/24 10:00 01/01/25 23:55 12/22/24 09:46 81 MG Pantoprazole Sodium 40 mg DAILY IV 12/22/24 10:00 12/22/24 09:46 40 MG Docusate Sodium 100 mg BIDPRN PRN PO 12/22/24 02:00 Acetaminophen 650 mg Q6HP PRN PO 12/22/24 02:00 Morphine Sulfate 2 mg Q4HPRN PRN IV 12/22/24 02:00 Sodium Chloride 1,000 ml @ 125 mls/hr Q8H IV 12/22/24 04:30 12/22/24 12:33 125 MLS/HR Heparin Sodium/ Dextrose 250 ml @ 8.5 mls/hr Q24H IV 12/22/24 12:30 12/22/24 12:34 8.5 MLS/HR Atorvastatin Calcium 80 mg HS PO 12/22/24 22:00 EZETIMIBE 10 mg DAILY PO 12/22/24 10:00 12/22/24 11:27 10 MG Examination: GENERAL:Normal, HEENT:Normal, NECK:Normal, LUNGS:Normal, CVS:Normal, ABDOMEN:Normal, MSK:Normal, SKIN:Normal, NEURO:Normal, :Normal laboratory and microbiology Laboratory Tests 12/22/24 09:05 Test 12/22/24 09:05 Range/Units Serum Glucose 106 74-106 mg/dL Problem List/Assessment/Plan Problem List/Assessment/Plan #1 acute mi: c angio, iv heparin #2 cad with s/p stents #3 hyperlipidemia #4 obesity #5 h/o drug/alcohol abuse- quit #6 likely sirs due to #1 unstable for transfer Plan discussed with: Patient, Spouse My Orders My Orders Orders - AKIN MORELOS MD Procedure Category Date Status Time Basic Metabolic Panel LAB 12/23/24 Verified 06:00 Complete Blood Count LAB 12/23/24 Verified 06:00 Magnesium LAB 12/23/24 Verified 05:00 Critical Care Time (mins): 38 (critical care time 38 mins) Date of Service: Dec 22, 2024 Billing Provider: AKIN MORELOS MD Common Visit Codes: [id number] CARE 30-74 MIN AKIN MORELOS MD Dec 22, 2024 14:06
[2024-12-22 17:23] VITALS: BP 121/71; PULSE 77; RESP 18; TEMP 97.6; O2SAT 98
[2024-12-22 17:51] VITALS: BP 121/71; PULSE 76; RESP 18; TEMP 97.6; O2SAT 96
[2024-12-22 18:51] LABS: Prothrombin Time 10.6 sec (9.3-11.8)
[2024-12-22 20:00] VITALS: PULSE 79; RESP 16
[2024-12-22 21:00] VITALS: BP 113/51; PULSE 80; RESP 20; TEMP 97.6; O2SAT 96
[2024-12-22] MEDS: ATORVASTATIN 20 MG TAB PO SCH (21:21)
[2024-12-23] VITALS (12 sets, daily range): BP systolic 99–145; BP diastolic 56–87; PULSE 68–86; RESP 15–20; TEMP 97.4–98.2; O2SAT 94–98
[2024-12-23 03:44] LABS: Basophils # (auto) 0 10 ^3/uL (0-0.2); Basophils % (auto) 0.3 % (0.0-2.0); Eosinophils # (auto) 0.2 10 ^3/uL (0-0.8); Eosinophils % (auto) 2.9 % (0.0-7.0); Hematocrit 36.2 % (41.0-53.0); Hemoglobin 12.2 g/dL (13.5-17.5); Lymphocytes # (auto) 3.7 10 ^3/uL (0.4-5.4); Lymphocytes % (auto) 53.7 % (10.0-50.0); Mean Corpuscular Hemoglobin 30.6 pg (28.0-32.0); Mean Corpuscular Hgb Conc. 33.8 g/dL (32.0-36.0); Mean Corpuscular Volume 90.4 fL (80.0-100.0); Monocytes # (auto) 0.4 10 ^3/uL (0-1.3); Monocytes % (auto) 6.3 % (0.0-12.0); Neutrophils # (auto) 2.5 10 ^3/uL (1.6-8.6); Neutrophils % (auto) 36.8 % (37.0-80.0); Nucleated Red Blood Cells % 0.2 %; Platelet Count (auto) 211 10^3/uL (140-450); White Blood Cell 6.9 10^3/uL (4.4-10.8)
[2024-12-23 04:05] LABS: Alanine Aminotransferase 36 U/L (7-40); Albumin 3.7 g/dL (3.2-4.8); Alkaline Phosphatase 86 U/L (46-116); Anion Gap 11 (5-15); BUN/Creatinine Ratio 23.8 (10.0-20.0); Carbon Dioxide 23 mmol/L (20-31); Magnesium 2.2 mg/dL (1.6-2.6); Potassium 3.9 mmol/L (3.5-5.1); Sodium 143 mmol/L (136-145); Total Protein 5.7 g/dL (5.7-8.2)
[2024-12-23 04:06] LABS: Bilirubin, Total 0.3 mg/dL (0.2-1.0)
[2024-12-23 04:07] LABS: Chloride 109 mmol/L (98-107); Glucose 116 mg/dL (74-106)
[2024-12-23 04:08] LABS: Blood Urea Nitrogen 24 mg/dL (9-23); Calcium 8.4 mg/dL (8.7-10.4)
[2024-12-23 04:11] LABS: Prothrombin Time 10.6 sec (9.3-11.8)
[2024-12-23 04:26] LABS: Partial Thromboplastin Time 109.4 SEC (24.5-34.5)
[2024-12-23 04:33] LABS: Aspartate Aminotransferase 34 U/L (13-40)
[2024-12-23] MEDS ORDERED: HEPARIN DRIP/D5W 100UNITS/ML 250 ML IV SCH (04:45)
[2024-12-23] MEDS ORDERED: ASPI-498 PO (07:47)
[2024-12-23] MEDS ORDERED: ATOR-507 PO (07:48)
[2024-12-23] MEDS ORDERED: NITR0.4S29 SL (07:48)
[2024-12-23 10:36] LABS: Hepatitis B Surface Antigen Negative (Negative); Hepatitis C Antibody Negative (Negative)
[2024-12-23] MEDS: HEPARIN SODIUM (PORCINE) 5000 UNITS/ML 1ML VIAL ONE (11:36)
[2024-12-23] MEDS: ANGIOMAX 250 MG VIAL IV ONE (11:36)
[2024-12-23] MEDS: fentaNYL CITRATE 100 MCG/2 ML VL ONE (11:37)
[2024-12-23] MEDS: VERAPAMIL 2.5MG/ML INJ 2ML VIAL IV ONE (11:37)
[2024-12-23] MEDS: MIDAZOLAM HCL 2MG/2ML 2ml VIAL (1mg/ml) ONE (11:37)
[2024-12-23] MEDS: SODIUM CHL 0.9% 50 ML ONE (11:38)
[2024-12-23] MEDS: LIDOCAINE 2%HCL (LOCAL ANESTH.) INJ 10ml MDV ONE (11:38)
[2024-12-23] MEDS: IODIXANOL 320MG/ML 100ML BTL IV ONE ×2 (11:48→12:24)
[2024-12-23] MEDS: TICAGRELOR 90 MG TAB ONE (13:03)
--- NOTE | 2024-12-23 13:07 | DVHOP2 ---
Operative Report - 2 Report Details Date: 12/23/24 Preop Diagnosis: CAD Postop Diagnosis: CAD Surgeon: Izzy Rossi MD Anesthesiologist: Conscious sedation Anesthesia: Mac, Local Consent: The patient was informed of the risks and benefits of the procedure. These include but are not limited to complications of anesthesia, postoperative infection, incomplete relief of symptoms, recurrence of symptoms, damage to blood vessels, nerves and tendons, deep venous thrombosis, pulmonary embolism and possible need for repeat surgery in the future. Complications: No complications Findings: Circumflex stenosis Indications for Surgery: Chest pain Name of Procedure Performed Left heart catheterization. Bilateral cine coronary angiography. Left ventriculography. Fractional flow reserve evaluation of the circumflex. PTCA and stenting of the circumflex coronary artery. Procedure Details Procedure Details: Prior local anesthesia with 2% lidocaine to the right wrist and full informed consent obtained patient was prepped and draped in usual fashion followed by placement of a six Azeri sheath into the radial artery through which six Azeri Ana María catheters were used to cannulate the left ventricle right and left coronary ostia and a 3.5 EBU guide was used for angioplasty and stenting of the circumflex as well as fractional flow reserve evaluation with an Omni wire. hemodynamics: Aortic blood pressure was 100/50 end-diastolic pressure was 12. There was no gradient across the aortic valve on pullback Coronary anatomy: The RCA is a large dominant vessel it has been stented in its midportion no stenosis in his proximal mid and distal segments. PDA and posterolateral branches were normal. Left main is large and normal. The LAD is large with no stenosis in its proximal mid or distal segments. The circumflex is large with two obtuse marginal branches that are normal. The mid circumflex proper has a 95% stenosis. Small posterolateral branches noted. Just at the takeoff of the acute marginal branch there appears to be a 60-70% stenosis of the circumflex. Fractional flow reserve evaluation reveals an FFR of 0.96 at this level indicative of noncritical disease of the circumflex just distal to the bifurcation of the marginal branch. Ventriculography in the ANGULO projection shows an EF of 50% with mild global hypokinesis. PTCA and stenting was performed subsequent to fractional flow reserve evaluation with an Omni wire. We placed a 2-0 balloon within the mid circumflex and placed a 225 by 12 mm Medtronic drug-eluting stent subsequent to pre-dilated with a 2-0 balloon as mentioned. There was excellent antegrade flow without thrombus formation under dissection subsequent to placing the piero 2.25 balloon proximally 15 atmospheres. There was notable improvement in flow. Impression: SuccessfulPTCA and stenting of the circumflex. Patent stents to the LAD and RCA. Normal left ventricular end-diastolic pressure rise with normal ejection fraction. Recommendations: dual antiplatelet therapy. Risk factor modification. Disposition Still a Patient Date of Service: Dec 23, 2024 Billing Provider: IZZY ROSSI Sr., MD Cardiology Common Codes: PROCEDURE ONLY Cardiology Procedure Codes: 10960 -PTCA W/STENT PLACEMENT, 99104-HUX W/IMG DOC INCL PROB ACQ, 20966-TMYN HEART CATH W/INTRA INJ IZZY ROSSI Sr., MD Dec 23, 2024 13:07
--- NOTE | 2024-12-23 13:17 | DVHPN2 ---
Progress Note Date Seen: Dec 23, 2024 Medical Necessity Reason Pt with a Central, PICC or Fol: No Subjective Patient reports: No new complaints Review of Systems: HEENT:Normal, CVS:Normal, RESPIRATORY:Normal, GI:Normal, :Normal, MSK:Normal, NEURO:Normal Objective vital signs Vital Sign Date Time Temp Pulse Resp B/P (MAP) Pulse Ox O2 Delivery O2 Flow Rate FiO2 12/23/24 11:37 151/77 12/23/24 08:44 98.1 83 16 97 98.1 12/23/24 08:00 Room Air* 0 21 Total Intake and Output 12/22/24 12/22/24 12/23/24 14:59 22:59 06:59 Intake Total 0 ml Balance 0 ml medications Current Medications Medications Dose Ordered Sig/Duc Route Start Time Stop Time Status Last Admin Dose Admin Nitroglycerin 0.4 mg Q5MINP PRN SL 12/22/24 01:45 Morphine Sulfate 2 mg Q30M PRN IV 12/22/24 02:00 Aspirin 81 mg DAILY PO 12/22/24 10:00 01/01/25 23:55 12/22/24 09:46 81 MG Pantoprazole Sodium 40 mg DAILY IV 12/22/24 10:00 12/22/24 09:46 40 MG Docusate Sodium 100 mg BIDPRN PRN PO 12/22/24 02:00 Acetaminophen 650 mg Q6HP PRN PO 12/22/24 02:00 Morphine Sulfate 2 mg Q4HPRN PRN IV 12/22/24 02:00 Sodium Chloride 1,000 ml @ 125 mls/hr Q8H IV 12/22/24 04:30 12/23/24 04:09 125 MLS/HR Atorvastatin Calcium 80 mg HS PO 12/22/24 22:00 12/22/24 21:21 80 MG EZETIMIBE 10 mg DAILY PO 12/22/24 10:00 12/22/24 11:27 10 MG Heparin Sodium/ Dextrose 250 ml @ 0 mls/hr Q0M IV 12/23/24 04:45 Examination: GENERAL:Normal, HEENT:Normal, NECK:Normal, LUNGS:Normal, CVS:Normal, ABDOMEN:Normal, MSK:Normal, SKIN:Normal, NEURO:Normal, :Normal laboratory and microbiology Laboratory Tests 12/23/24 02:50 Test 12/23/24 02:50 Range/Units Serum Glucose 116 H 74-106 mg/dL Microbiology Date/Time Source Procedure Growth Status 12/22/24 01:51 Blood Blood Culture - Preliminary NO GROWTH AFTER 24 HOURS OF INCUBATION. 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
--- NOTE | 2024-12-23 17:27 | DVHSR ---
APPROVED REPORT EXAM: Two-dimensional and M-mode echocardiogram with Doppler and color Doppler. Blood Pressure: 127/62 mmHg INDICATION Rule out structural heart disease RISK FACTORS Height: 65, Weight: 189 DIMENSIONS LVDd4.3 (3.8-5.7cm)LA (2D)4.2 (1.9-4.0cm)Aortic Root3.2 (2.0-3.7cm) LVDs2.9 (2.5-4.0cm)LA (MM) (1.9-4.0cm)Aortic Cusp Exc1.8 (1.5-2.0cm) EF (%) 61.0 (55-70%)Rt. Atrium3.3 (1.9-4.0cm)Asc. Aorta cm IVSd0.9 (0.7-1.1cm)RV (D) (1.8-2.4cm) PWd0.9 (0.7-1.1cm) Mitral Valve MitralMitral Stenosis E wave0.90m/sMV Mean GR.mmHg A wave0.92m/sMV Peak GR.mmHg E/A ratio1.02D MVAcm2 DECEL [id number] 1/2 Matn80zt IVRTmsDop MVA3.56cm2 Aortic Valve Aortic ValveAortic Stenosis V10.84m/Mirna Mean GR.5mmHg V21.35m/Mirna Peak GR.7mmHg LVOT Diameter2.3 (1.8-2.4cm)Doppler AVA2.58cm2 Pulmonic Valve V20.97m/s Other Information Technically limited study due to body habitus and patient position. Conclusion Technically good study. Sinus rhythm. Mild LV enlargement. Mild left atrial enlargement. Valves are normal. EF of 50-55% with normal RV function. Contrast ECHO confirms left ventricular function. Dopplers unremarkable. No pericardial effusion masses or vegetations.
[2024-12-24 01:00] VITALS: BP 136/85; PULSE 82; RESP 20; TEMP 97.9; O2SAT 96
[2024-12-24 05:00] VITALS: BP_SYST 122; BP_SYST 124; BP_DIAS 71; BP_DIAS 77; PULSE 59; PULSE 81; RESP 18; RESP 20; TEMP 97.5; TEMP 98.5; O2SAT 96; O2SAT 97
[2024-12-24 06:16] LABS: Basophils # (auto) 0 10 ^3/uL (0-0.2); Basophils % (auto) 0.3 % (0.0-2.0); Eosinophils # (auto) 0.1 10 ^3/uL (0-0.8); Eosinophils % (auto) 1.5 % (0.0-7.0); Hematocrit 36.6 % (41.0-53.0); Hemoglobin 12.5 g/dL (13.5-17.5); Lymphocytes # (auto) 2.4 10 ^3/uL (0.4-5.4); Lymphocytes % (auto) 35.1 % (10.0-50.0); Mean Corpuscular Hemoglobin 30.4 pg (28.0-32.0); Mean Corpuscular Hgb Conc. 34.2 g/dL (32.0-36.0); Mean Corpuscular Volume 88.9 fL (80.0-100.0); Monocytes # (auto) 0.4 10 ^3/uL (0-1.3); Monocytes % (auto) 5.9 % (0.0-12.0); Neutrophils # (auto) 3.9 10 ^3/uL (1.6-8.6); Neutrophils % (auto) 57.2 % (37.0-80.0); Platelet Count (auto) 212 10^3/uL (140-450); Red Blood Cells 4.12 10^6/uL (4.5-5.90); Red Cell Distribution Width 12.8 % (11.8-14.3); White Blood Cell 6.9 10^3/uL (4.4-10.8)
[2024-12-24 06:36] LABS: Alanine Aminotransferase 38 U/L (7-40); Anion Gap 10 (5-15); BUN/Creatinine Ratio 15.6 (10.0-20.0); Blood Urea Nitrogen 12 mg/dL (9-23); Carbon Dioxide 25 mmol/L (20-31); Glucose 95 mg/dL (74-106); Sodium 142 mmol/L (136-145)
[2024-12-24 06:37] LABS: Total Protein 5.9 g/dL (5.7-8.2)
[2024-12-24 06:38] LABS: Albumin 3.8 g/dL (3.2-4.8); Aspartate Aminotransferase 28 U/L (13-40); Bilirubin, Total 0.7 mg/dL (0.2-1.0); Calcium 8.5 mg/dL (8.7-10.4); Chloride 107 mmol/L (98-107)
[2024-12-24 07:40] LABS: Alkaline Phosphatase 65 U/L (46-116)
[2024-12-24 07:45] VITALS: PULSE 74
[2024-12-24 08:39] VITALS: BP 121/64; PULSE 80; RESP 16; TEMP 98.1; O2SAT 97
--- NOTE | 2024-12-24 11:21 | DVHPNRES ---
Progress Note Date Seen: Dec 24, 2024 Resident Creating Document: JOSE WRIGHT RESIDENT Medical Necessity Reason Pt with a Central, PICC or Fol: No Subjective Review of Systems Denies any active ongoing chest pain, dyspnea, bruising or discomfort Objective vital signs Vital Sign Date Time Temp Pulse Resp B/P (MAP) Pulse Ox O2 Delivery O2 Flow Rate FiO2 12/24/24 08:39 98.1 80 16 121/64 (83) 97 98.1 12/24/24 07:45 Room Air* 0 21 Total Intake and Output 12/23/24 12/23/24 12/24/24 15:00 23:00 07:00 Intake Total 1000 ml 200 ml Balance 1000 ml 200 ml medications Current Medications Medications Dose Ordered Sig/Duc Route Start Time Stop Time Status Last Admin Dose Admin Nitroglycerin 0.4 mg Q5MINP PRN SL 12/22/24 01:45 Morphine Sulfate 2 mg Q30M PRN IV 12/22/24 02:00 Aspirin 81 mg DAILY PO 12/22/24 10:00 01/01/25 23:55 12/24/24 08:52 81 MG Pantoprazole Sodium 40 mg DAILY IV 12/22/24 10:00 12/24/24 08:52 40 MG Docusate Sodium 100 mg BIDPRN PRN PO 12/22/24 02:00 Acetaminophen 650 mg Q6HP PRN PO 12/22/24 02:00 Morphine Sulfate 2 mg Q4HPRN PRN IV 12/22/24 02:00 Sodium Chloride 1,000 ml @ 125 mls/hr Q8H IV 12/22/24 04:30 12/24/24 05:45 125 MLS/HR Atorvastatin Calcium 80 mg HS PO 12/22/24 22:00 12/23/24 21:00 80 MG EZETIMIBE 10 mg DAILY PO 12/22/24 10:00 12/24/24 08:52 10 MG Examination General Appearance: Cooperative. Well developed. Well nourished. NAD. Head Exam: Normal inspection Neck Exam: Normal inspection. Non-tender. Normal alignment Pulmonary/Respiratory: Chest non-tender. Clear bilateral breath sounds, no crackles, no wheezing. Cardiovascular/Chest: Regular rate and rhythm. No murmurs. No JVD. Peripheral Pulses: 2+ Radial (R). 2+ Radial (L). 2+ Pedal (R). 2+ Pedal (L) Abdominal Exam: Normal bowel sounds. Soft. normal abdomen, no visible veins, Nontender. No hepatospenomegaly. No masses Ankle Exam: Negative ankle edema Lower extremities: Negative lower extremity edema Neuro/Mental Status: A&O x4. Coherent. Thoughts/Psych: Normal thought pattern. Appropriate mood and affect. Good judgement and insight Skin Exam: Normal inspection. Normal color. Warm. Dry laboratory and microbiology Laboratory Tests 12/24/24 05:12 Test 12/24/24 05:12 Range/Units Serum Glucose 95 74-106 mg/dL Microbiology Date/Time Source Procedure Growth Status 12/22/24 01:51 Blood Blood Culture - Preliminary NO GROWTH AFTER 48 HOURS OF INCUBATION. Resulted Labs and/or images reviewed: Labs reviewed by me, Image(s) reviewed by me Problem List/Assessment/Plan Problem List/Assessment/Plan NSTEMI type 1; s/p PTCA and stenting of the circumflex CAD, AILYN 3 S/p PCI x2 in December 2023 Prediabetes with A1c 5.9 Mixed dyslipidemia Heat exhaustion FANTA likely hemodynamically mediated, now improving Dehydration Plan: Continue aspirin 81 mg daily, Brilinta 90 mg b.i.d. Atorvastatin 80 mg daily Started ezetimibe Monitor blood pressure Aggressive lifestyle modification Patient was counseled extensively on adhering to aspirin plus Brilinta for 1 year, patient reports having adequate refills of aspirin and Brilinta available. 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 Thank you so much for the opportunity to consult on your patient. Cardiology team will sign off now. In case of any questions or concerns please feel free to reach out. Plan discussed with Dr. Rossi Plan discussed with: Patient, Spouse, Other (RN) Visit Coding Cardiology RES Date of Service: Dec 24, 2024 Billing Provider: JOSE WRIGHT Cardiology Common Codes: [id number] HOSP CARE([facility] JOSE WRIGHT RESIDENT Dec 24, 2024 11:21
[2024-12-24] MEDS ORDERED: ATOR-47 PO (12:23)
[2024-12-24] MEDS ORDERED: TICA90TA PO (12:23)
[2024-12-24] MEDS ORDERED: METO25TA36 PO (12:23)
[2024-12-24] MEDS ORDERED: EZET10TA22 PO (12:23)
--- NOTE | 2024-12-24 12:24 | DVHDS2 ---
Discharge Summary Date of Admission Dec 22, 2024 at 01:37 Date of Discharge: Dec 24, 2024 Labs/Diagnostic Data: Laboratory Results Test 12/24/24 05:12 12/23/24 02:50 12/22/24 18:26 12/22/24 09:05 White Blood Count 6.9 10^3/uL (4.4-10.8) Red Blood Count 4.12 10^6/uL (4.5-5.90) Hemoglobin 12.5 g/dL (13.5-17.5) Hematocrit 36.6 % (41.0-53.0) Mean Corpuscular Volume 88.9 fL (80.0-100.0) Mean Corpuscular Hemoglobin 30.4 pg (28.0-32.0) Mean Corpuscular Hemoglobin Concent 34.2 g/dL (32.0-36.0) Red Cell Distribution Width 12.8 % (11.8-14.3) Platelet Count 212 10^3/uL (140-450) Mean Platelet Volume 7.7 fL (6.9-10.8) Neutrophils (%) (Auto) 57.2 % (37.0-80.0) Lymphocytes (%) (Auto) 35.1 % (10.0-50.0) Monocytes (%) (Auto) 5.9 % (0.0-12.0) Eosinophils (%) (Auto) 1.5 % (0.0-7.0) Basophils (%) (Auto) 0.3 % (0.0-2.0) Neutrophils # (Auto) 3.9 10 ^3/uL (1.6-8.6) Lymphocytes # (Auto) 2.4 10 ^3/uL (0.4-5.4) Monocytes # (Auto) 0.4 10 ^3/uL (0-1.3) Eosinophils # (Auto) 0.1 10 ^3/uL (0-0.8) Basophils # (Auto) 0 10 ^3/uL (0-0.2) Nucleated Red Blood Cells 0.0 % Sodium Level 142 mmol/L (136-145) Potassium Level 4.0 mmol/L (3.5-5.1) Chloride Level 107 mmol/L (98-107) Carbon Dioxide Level 25 mmol/L (20-31) Anion Gap 10 (5-15) Blood Urea Nitrogen 12 mg/dL (9-23) Creatinine 0.77 mg/dL (0.700-1.30) Glomerular Filtration Rate Calc 104 mL/min (>90) BUN/Creatinine Ratio 15.6 (10.0-20.0) Serum Glucose 95 mg/dL (74-106) Calcium Level 8.5 mg/dL (8.7-10.4) Total Bilirubin 0.7 mg/dL (0.2-1.0) Aspartate Amino Transferase (AST) 28 U/L (13-40) Alanine Aminotransferase (ALT) 38 U/L (7-40) Alkaline Phosphatase 65 U/L (46-116) Total Protein 5.9 g/dL (5.7-8.2) Albumin 3.8 g/dL (3.2-4.8) Prothrombin Time 10.6 sec (9.3-11.8) Prothrombin Time INR 1.00 (0.9-1.15) Activated Partial Thromboplast Time 109.4 SEC (24.5-34.5) Magnesium Level 2.2 mg/dL (1.6-2.6) Hepatitis B Surface Antigen Negative (Negative) Hepatitis C Antibody Negative (Negative) Troponin I High Sensitivity 610 ng/L (</=54) Test 12/22/24 01:52 12/22/24 01:50 12/22/24 00:03 12/21/24 23:53 D-Dimer, Quantitative 0.38 mg/L FEU (0.0-0.49) Hemoglobin A1c 5.9 % A1C (<5.7) Lactic Acid Level 1.1 mmol/L (0.4-2.0) Triglycerides Level 248 mg/dL (< 150) Cholesterol Level 228 mg/dL (< 200) LDL Cholesterol 134 mg/dL (< 100) HDL Cholesterol 43 mg/dL (40-59) Thyroid Stimulating Hormone (TSH) 1.54 uIU/mL (0.55-4.78) Plasma/Serum Blood Alcohol 4.2 mg/dL (<10) Influenza Type A Antigen Negative (Negative) Influenza Type B Antigen Negative (Negative) SARS-CoV-2 Antigen (Rapid) Negative (NEGATIVE) Urine Color Yellow (Yellow) Urine Clarity Clear (Clear) Urine pH 5.5 (5.0-9.0) Urine Specific [place] 1.031 (1.001-1.035) Urine Protein Negative (Negative) Urine Ketones Negative (Negative) Urine Blood Negative /uL (Negative) Urine Nitrite Negative (Negative) Urine Bilirubin Negative (Negative) Urine Urobilinogen Normal mg/dL (Negative) Urine Leukocyte Esterase Negative /uL (Negative) Urine RBC 1 /hpf (0 - 3) Urine Microscopic WBC 1 /HPF (0-3) Urine Squamous Epithelial Cells None seen /hpf (<5) Urine Bacteria Few /hpf (None Seen) Urine Mucus Few (None Seen) Urine Sperm Present /hpf (None Seen) Urine Osmolality 980 mOsm/kg Urine Creatinine 288.32 mg/dL (30.0-125.0) Urine Sodium 45 mmol/L (40-220) Urine Potassium 56 mmol/L (12-62) Urine Glucose Normal mg/dL (Normal) Urine Opiates Screen Neg (NEGATIVE) Urine Fentanyl Screen Neg (NEGATIVE) Urine Barbiturates Screen Neg (NEGATIVE) Urine Phencyclidine Screen Neg (NEGATIVE) Urine Amphetamines Screen Neg (NEGATIVE) Urine Benzodiazepines Screen Neg (NEGATIVE) Urine Cocaine Screen Neg (NEGATIVE) Urine Cannabinoids Screen Neg (NEGATIVE) Creatine Kinase 993 U/L (46-171) C-Reactive Protein High Sensitivity 0.58 mg/dL (<1.0) Test 12/21/24 22:53 Erythrocyte Sedimentation Rate 10 mm/hr (0-20) B-Type Natriuretic Peptide 3.02 pg/mL (0-100) Other Laboratory Tests 12/24/24 05:12 Brief Hx & Hospital Course: see dictated note Condition at Discharge: Fair Final Diagnosis/Problems List CAD Discharge Disposition: Home Discharge Instruct/Medications Diet: Cardiac 2g Na,low cholest Activity: No Restrictions, As Tolerated Follow Up/Referral: fu with pcp in 1wk Medications: resume home meds script to pharmacy Discharge Statement: "Patient was advised to return to the ER or call 911 if any headaches, dizziness, shortness of breath, chest pain, abdominal pain, bleeding, fevers, or worsening of medical condition. Patient was counseled about treatment plan, medications, possible side effects, patientverbalized understanding. All questions were answered to the best of my ability. This discharge took greater then 30 minutes in planning, reviewing documentation, counseling the patient, and discussing with other team members." ASSESSMENT ASSESSMENT Assessment CAD Date of Service: Dec 24, 2024 Billing Provider: AKIN MORELOS MD Common Visit Codes: 72721-HBV/OBS DISCH DAY >30min AKIN MORELOS MD Dec 24, 2024 12:24
[2024-12-24] MEDS: TICAGRELOR 90 MG TAB PO ONE (12:51)
[2024-12-24 13:00] VITALS: BP 140/59; PULSE 88; RESP 18; TEMP 98; O2SAT 98
--- NOTE | 2024-12-24 15:48 | DVHDS ---
DATE OF DISCHARGE: 12/24/2024 HISTORY OF PRESENT ILLNESS: The patient is a 59-year-old gentleman who came in with complaints of chest pain and has history of previous coronary artery disease with stent as well as prior history of smoking, alcohol, and drug abuse. HOSPITAL COURSE: The patient had elevated troponin levels that were suggestive of acute IN. The patient was seen in cardiology consult by Dr. Rossi. The patient underwent coronary angiography with PTCA and stenting of the circumflex. He had patent stents in the LAD and RCA. The patient is now doing well and has been cleared for discharge. LDL was 134. The patient will be discharged home to resume his home medications as well as to be on Brilinta 90 mg b.i.d., Lipitor 80 mg at bedtime, Zetia 10 mg daily, and Toprol XL 25 mg daily. 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 FINAL DIAGNOSES: * Acute myocardial infarction, status post coronary angiography and stent placement. * Coronary artery disease with previous stents. * Hyperlipidemia. * Obesity. * Likely SIRS due to acute IN. * History of drug and alcohol abuse. Time spent in discharge planning and review of plan with the patient and nursing was 39 minutes. MD DYLLAN Champagne/HALINA/JAVY TID: [id number] RECEIPT: [id number]
[2024-12-24 16:53] VITALS: BP 148/76; PULSE 90; RESP 16; TEMP 98; O2SAT 98
[2024-12-24] MEDS ORDERED: TICAGRELOR 90 MG TAB PO SCH (22:00)
== END 2024-12-24 17:10 | disposition home or self-care (01) | DRG 321 ==
LOC: ER 22:44 → OVERFLOW 12-22 01:37 → TELE-WESTW 12-22 17:23
PROVIDERS: ADMIT Internal Medicine; ATTEND Internal Medicine
PROC: 027034Z Dilation of Coronary Artery, One Artery with Drug-eluting Intraluminal Device, Percutaneous Approach (ICD-10-PCS; principal; 2024-12-23)
PROC: 4A023N7 Measurement of Cardiac Sampling and Pressure, Left Heart, Percutaneous Approach (ICD-10-PCS; 2024-12-23)
PROC: B2111ZZ Fluoroscopy of Multiple Coronary Arteries using Low Osmolar Contrast (ICD-10-PCS; 2024-12-23)
PROC: B2151ZZ Fluoroscopy of Left Heart using Low Osmolar Contrast (ICD-10-PCS; 2024-12-23)
PROC: 4A033BC Measurement of Arterial Pressure, Coronary, Percutaneous Approach (ICD-10-PCS; 2024-12-23)
DX: I25.10 Atherosclerotic heart disease of native coronary artery without angina pectoris (principal); I21.A1 Myocardial infarction type 2; J96.01 Acute respiratory failure with hypoxia; R65.10 Systemic inflammatory response syndrome (SIRS) of non-infectious origin without acute organ dysfunction; N17.9 Acute kidney failure, unspecified; E86.0 Dehydration; E66.9 Obesity, unspecified; T67.5XXA Heat exhaustion, unspecified, initial encounter; E78.2 Mixed hyperlipidemia; Z79.899 Other long term (current) drug therapy; Z87.891 Personal history of nicotine dependence; Z68.30 Body mass index [BMI] 30.0-30.9, adult; Z82.49 Family history of ischemic heart disease and other diseases of the circulatory system; X58.XXXA Exposure to other specified factors, initial encounter; Y93.89 Activity, other specified; Y92.89 Other specified places as the place of occurrence of the external cause; Y99.8 Other external cause status
CPT/HCPCS: 36415; 71045; 76775; 80053; 80061; 80307; 80320; 81001; 82550; 82570; 83036; 83605; 83735; 83880; 83935; 84133; 84300; 84443; 84484; 85025; 85379; 85610; 85652; 85730; 86141; 86803; 87040; 87340; 87426; 87804; 93005; 93306; 96374; 97163; 99152; C1874; C1887; G0378; J2003; J2250; J2470; Q9956; Q9967